=== PATIENT | male | born 1960 | race Caucasian/White ===

== ENCOUNTER 2018-03-29 18:39 | Inpatient (IN) | payer BC ==
[~2018-03-29 18:39] MED LIST: Iopamidol 370 76% 100 ML VIAL ONE; Iopamidol 370 76% 50 ML VIAL FS ONE
[2018-03-29] MEDS ORDERED: Heparin 5,000 UNITS/ML VIAL ONE (18:56)
[2018-03-29] MEDS ORDERED: Clopidogrel Bisulfate 75 MG TAB ONE ×2 (18:58→19:01)
[2018-03-29 19:03] LABS: #Basophils 0.2 thou/uL (0.0-0.2); #Eosinphils 0.4 thou/uL (0.0-0.7); #Lymphocytes 3.1 thou/uL (1.20-3.40); #Monocytes 0.9 thou/uL (0.11-0.59); #Neutrophils 6.7 thou/uL (1.40-6.50); %Basophils 1.6 % (0.0-1.0); %Eosinophils 3.1 % (0.0-10.0); %Lymphocytes 27.8 % (21.0-51.0); %Monocytes 7.5 % (0.0-10.0); %Neutrophils 59.9 % (42.0-75.0); Hemoglobin 16.1 g/dL (14.0-18.0); Mean Corpuscular HGB CONC 34.5 g/dL (32.0-36.0); Mean Corpuscular Hemoglobin 32.1 pg (27.0-31.0); Mean Corpuscular Volume 93.1 fL (78.0-98.0); Mean Platelet Volume 9.4 fL (7.4-10.4); Platelet Count 183 thou/uL (130-400); RBC Distribution Width 11.7 % (11.5-14.5); Red Blood Cell (RBC) Count 5.01 mill/uL (4.70-6.10); White Blood Cell (WBC) Count 11.2 thou/uL (4.8-10.8)
[2018-03-29 19:08] LABS: PTT 26.7 SEC (22.9-36.1); Prothrombin Time 13.3 SEC (12.0-14.7)
--- NOTE | 2018-03-29 19:14 | RAD ---
PORTABLE UPRIGHT CHEST ONE VIEW 02/27/18 HISTORY: 57-year-old male with history of STEMI. COMPARISON: 12/23/11. FINDINGS: Heart size is normal. The lungs are clear. There is some healed right rib fractures. IMPRESSION: No acute intrathoracic disease. POS: [facility]
[2018-03-29 19:17] LABS: ALT (SGPT) 19 U/L (8-55); AST (SGOT) 14 U/L (5-34); Albumin 4.5 g/dL (3.5-5.0); Alkaline Phosphatase 69 U/L (40-150); Anion Gap 12 mmol/L (10-20); BUN (Urea Nitrogen) 11 mg/dL (8.4-25.7); Bilirubin, Total 0.3 mg/dL (0.2-1.2); Calc. Creatinine Clearance 0 mL/min (70-130); Calcium 9.3 mg/dL (7.8-10.44); Carbon Dioxide 26 mmol/L (22-29); Chloride 105 mmol/L (98-107); Estimated GFR-MDRD Greater than 90; Globulin 2.9 g/dL (2.4-3.5); Glucose 99 mg/dL (70-105); Potassium 4.3 mmol/L (3.5-5.1); Protein, Total 7.4 g/dL (6.0-8.3); Sodium 139 mmol/L (136-145)
[2018-03-29 19:19] LABS: CKMB 1.5 ng/mL (0-6.6); Troponin I 0.065 ng/mL (< 0.028)
[2018-03-29] MEDS ORDERED: Lorazepam 2 MG/ML VIAL ONE (19:40)
[2018-03-29] MEDS ORDERED: Clopidogrel Bisulfate 300 MG TAB ONE (19:50)
[2018-03-29] MEDS ORDERED: Heparin 10,000 UNITS/1 ML VIAL ONE (20:06)
[2018-03-29] MEDS ORDERED: Sodium Chloride 0.9% 1,000 ML IV SCH (20:30)
[2018-03-29] MEDS ORDERED: Lidocaine 1% (PF) 30 ML VIAL ONE (20:53)
[2018-03-29] MEDS: Carvedilol 3.125 MG TAB PO SCH (21:35)
[2018-03-29] MEDS: Atorvastatin Calcium 40 MG TAB PO SCH (21:35)
[2018-03-29 21:44] LABS: Cardiac Risk 4.4 (Less than 4.5)
[2018-03-29 21:50] LABS: CKMB 2.6 ng/mL (0-6.6)
--- NOTE | 2018-03-29 23:13 | HP ---
CRITICAL CARE NOTE; 03/29/18 The patient is a 57-year-old gentleman presents with the acute onset of substernal chest discomfort. The patient states no previous cardiac history. He states several days ago started having midsternal chest discomfort. This chest pain occurred for several hours and then subsequently resolved. It has been going on for the past several days. The patient reports that since 11:00 a.m. he has continued to have persistent chest discomfort. PAST MEDICAL HISTORY: None. PAST SURGICAL HISTORY: None. SOCIAL HISTORY: Long history of tobacco abuse. ALLERGIES: No known drug allergies. FAMILY HISTORY: Strong family history. Father had a myocardial infarction. PHYSICAL EXAMINATION: GENERAL: Well-developed gentleman in no acute distress. VITAL SIGNS: His blood pressure was 140/89. NECK: No jugular distention, no carotid bruits. LUNGS: Clear to auscultation. HEART: Regular rate and rhythm, normal S1, S2. ABDOMEN: Nondistended. EXTREMITIES: No edema. LABORATORY DATA: White blood cell count 11.2, hemoglobin 16.1, hematocrit 46.7 , platelets 183. Sodium 139, potassium 4.3, chloride 105, bicarbonate 26, BUN 11 creatinine 0.78. Troponin 0.065. EKG revealed normal sinus rhythm with ST elevation in the anterolateral leads with reciprocal ST depression. IMPRESSION: 1. Probable acute myocardial infarction. 2. Tobacco abuse. This gentleman has ST elevation on his electrocardiogram suggestive of acute myocardial infarction. His initial troponin level; however, was not significantly elevated. I have recommended proceeding directly to the cardiac catheterization laboratory. I explained the risks involved cardiac catheterization including MS, bleeding, stroke, cardiac arrhythmia, and cardiac . The patient understood these risks and wished to proceed. 30 minutes critical care time. [facility]
[2018-03-30 02:54] LABS: #Basophils 0.1 thou/uL (0.0-0.2); #Eosinphils 0.2 thou/uL (0.0-0.7); #Lymphocytes 2.2 thou/uL (1.20-3.40); #Neutrophils 8.1 thou/uL (1.40-6.50); %Basophils 0.8 % (0.0-1.0); %Lymphocytes 18.8 % (21.0-51.0); %Monocytes 8.5 % (0.0-10.0); Hemoglobin 15.2 g/dL (14.0-18.0); Mean Corpuscular HGB CONC 33.8 g/dL (32.0-36.0); Mean Corpuscular Hemoglobin 33.7 pg (27.0-31.0); Mean Corpuscular Volume 99.8 fL (78.0-98.0); Mean Platelet Volume 8.1 fL (7.4-10.4); Platelet Count 209 thou/uL (130-400); Red Blood Cell (RBC) Count 4.49 mill/uL (4.70-6.10); White Blood Cell (WBC) Count 11.6 thou/uL (4.8-10.8)
[2018-03-30 03:15] LABS: Troponin I 0.668 ng/mL (< 0.028)
[2018-03-30 03:37] LABS: ALT (SGPT) 15 U/L (8-55); AST (SGOT) 13 U/L (5-34); Alkaline Phosphatase 63 U/L (40-150); Anion Gap 12 mmol/L (10-20); BUN (Urea Nitrogen) 12 mg/dL (8.4-25.7); Bilirubin, Total 0.3 mg/dL (0.2-1.2); Calc. Creatinine Clearance 126 mL/min (70-130); Carbon Dioxide 21 mmol/L (22-29); Chloride 110 mmol/L (98-107); Estimated GFR-MDRD Greater than 90; Globulin 2.4 g/dL (2.4-3.5); Glucose 122 mg/dL (70-105); Potassium 3.7 mmol/L (3.5-5.1); Protein, Total 6.4 g/dL (6.0-8.3); Sodium 139 mmol/L (136-145)
[2018-03-30] MEDS: Clopidogrel Bisulfate 75 MG TAB PO SCH (09:48)
[2018-03-30] MEDS: Carvedilol 3.125 MG TAB PO SCH ×2 (09:48→20:53)
[2018-03-30] MEDS: Lisinopril 2.5 MG TAB PO SCH (09:48)
[2018-03-30] MEDS: Aspirin 325 MG TAB PO SCH (09:49)
[2018-03-30] MEDS: Atorvastatin Calcium 40 MG TAB PO SCH (20:53)
[2018-03-31 05:32] LABS: #Basophils 0.1 thou/uL (0.0-0.2); #Eosinphils 0.2 thou/uL (0.0-0.7); #Lymphocytes 1.4 thou/uL (1.20-3.40); #Monocytes 1.1 thou/uL (0.11-0.59); #Neutrophils 5.6 thou/uL (1.40-6.50); %Eosinophils 2.2 % (0.0-10.0); %Lymphocytes 16.8 % (21.0-51.0); Hemoglobin 15.1 g/dL (14.0-18.0); Mean Corpuscular Hemoglobin 32.1 pg (27.0-31.0); Mean Platelet Volume 8.3 fL (7.4-10.4); Platelet Count 194 thou/uL (130-400); RBC Distribution Width 12.2 % (11.5-14.5); Red Blood Cell (RBC) Count 4.72 mill/uL (4.70-6.10); White Blood Cell (WBC) Count 8.4 thou/uL (4.8-10.8)
[2018-03-31 05:53] LABS: Anion Gap 12 mmol/L (10-20); BUN (Urea Nitrogen) 9 mg/dL (8.4-25.7); Calc. Creatinine Clearance 122 mL/min (70-130); Calcium 9.2 mg/dL (7.8-10.44); Carbon Dioxide 24 mmol/L (22-29); Chloride 106 mmol/L (98-107); Estimated GFR-MDRD Greater than 90; Glucose 93 mg/dL (70-105); Potassium 3.9 mmol/L (3.5-5.1); Sodium 138 mmol/L (136-145)
[2018-03-31] MEDS: Lisinopril 2.5 MG TAB PO SCH (09:06)
[2018-03-31] MEDS: Carvedilol 3.125 MG TAB PO SCH (09:06)
[2018-03-31] MEDS: Aspirin 325 MG TAB PO SCH (09:06)
[2018-03-31] MEDS: Clopidogrel Bisulfate 75 MG TAB PO SCH (09:06)
--- NOTE | 2018-03-31 17:02 | EKG ---
Test Reason : TIMED Blood Pressure : / mmHG Vent. Rate : 071 BPM Atrial Rate : 071 BPM P-R Int : 162 ms QRS Dur : 082 ms QT Int : 356 ms P-R-T Axes : 052 082 060 degrees QTc Int : 386 ms Normal sinus rhythm Normal ECG When compared with ECG of 30-MAR-2018 02:13, (Unconfirmed) Previous ECG has undetermined rhythm, needs review Confirmed by DR. Price DEAN ([id number]) on 03/31/2018 5:02:09 PM Referred By: LAITH Confirmed By:DR. Price DEAN
[2018-03-31 18:35] VITALS: BP 132/81; TEMP 98.2
--- NOTE | 2018-03-31 18:37 | DIS ---
DATE OF ADMISSION: 03/29/2018 DATE OF DISCHARGE: 03/31/2018 DISCHARGING PHYSICIAN: Rd Morataya M.D. PRIMARY DIAGNOSES: 1. Acute anterolateral ST elevation myocardial infarction. 2. Tobacco abuse. PROCEDURES PERFORMED: 1. Left heart catheterization. 2. Percutaneous coronary intervention to the large first diagonal with a drug-eluting stent. 3. Echocardiogram. 4. Chest x-ray. OUTPATIENT MEDICATIONS: 1. Aspirin 325 a day. 2. Plavix 75 mg daily. 3. Coreg 3.125 mg b.i.d. 4. Lisinopril 2.5 mg daily. 5. Atorvastatin 80 mg at bedtime. SUMMARY: Mr. Dill is a pleasant 57-year-old white gentleman who came to the hospital for chest pa in. He was found to have an anterolateral ST elevation IL, was taken to the rn lab where he was fo und to have significantly stenosed large first diagonal. This was stented successfully with drug-elu ting stent. He did very well afterwards. Echocardiogram showed normal LV function and unremarkable valvular structures. He was advised to stop smoking, which he tells me that he has been trying to quit. He has done quite well without issues, walking around without any problems. He is stable for discharge. We will plan on sending him home today on the above medications. He will follow up with us in 1 month. Over 30 minutes were spent at bedside counseling the patient on discharge.
--- NOTE | 2018-04-19 15:28 | EKG ---
Test Reason : SOB Blood Pressure : / mmHG Vent. Rate : 058 BPM Atrial Rate : 058 BPM P-R Int : 158 ms QRS Dur : 076 ms QT Int : 382 ms P-R-T Axes : 024 059 004 degrees QTc Int : [address] elevation consider lateral injury or acute infarct ACUTE [place] / STEMI Abnormal ECG Confirmed by MANDEEP CALDERON DO ([id number]), editor magazine TAMARA TIRADO ([id number]) on 04/19/2018 3:28:32 PM Referred By: Confirmed By:MANDEEP CALDERON DO
== END 2018-03-31 18:24 | disposition home or self-care (01) | DRG 247 ==
LOC: SCSER 18:39 → 2NO 19:11
PROVIDERS: ADMIT Internal Medicine Cardiovascular Disease; ATTEND Internal Medicine Cardiovascular Disease
PROC: 4A023N7 Measurement of Cardiac Sampling and Pressure, Left Heart, Percutaneous Approach (ICD-10-PCS; principal; 2018-03-29)
PROC: 027034Z Dilation of Coronary Artery, One Artery with Drug-eluting Intraluminal Device, Percutaneous Approach (ICD-10-PCS; 2018-03-29)
PROC: B2111ZZ Fluoroscopy of Multiple Coronary Arteries using Low Osmolar Contrast (ICD-10-PCS; 2018-03-29)
PROC: B2151ZZ Fluoroscopy of Left Heart using Low Osmolar Contrast (ICD-10-PCS; 2018-03-29)
DX: I21.09 ST elevation (STEMI) myocardial infarction involving other coronary artery of anterior wall (principal); F17.210 Nicotine dependence, cigarettes, uncomplicated; Z82.49 Family history of ischemic heart disease and other diseases of the circulatory system; I10 Essential (primary) hypertension
CPT/HCPCS: 36415; 71045; 80048; 80053; 80061; 82553; 83880; 84484; 85025; 85347; 85610; 85730; 92941; 93005; 93010; 93306; 93458; 93798; 96374; C1760; C1769; C1874; C9606; J1644; J2001; J2060